=== PATIENT | female | born 2000 | race Caucasian/White ===

== ENCOUNTER 2022-10-24 12:12 | Outpatient (OUT) | payer OTHER, SELFPAY ==
[2022-10-24 12:45] LABS: Basophils Percent Auto 0.6 % (0.2-2.0); Eosinophils Absolute Auto 0.1 10^3/uL (0.0-0.7); Eosinophils Percent Auto 1.8 % (0.9-7.0); Hematocrit 42.6 % (36.0-48.0); Hemoglobin 14.3 g/dL (12.0-16.0); Immature Granulocytes Abs Auto 0.01 10^3/uL (0.00-0.03); Immature Granulocytes Pct Auto 0.2 % (0.0-0.5); Lymphocytes Absolute Auto 1.7 10^3/uL (1.2-3.8); Lymphocytes Percent Auto 34.1 % (20.5-60.0); Mean Corpuscular HGB Conc 33.6 g/dL (29.9-35.2); Mean Corpuscular Hemoglobin 29.3 pg (26.7-34.0); Mean Corpuscular Volume 87.3 fL (81.0-99.0); Mean Platelet Volume 9.1 fL (9.5-13.5); Monocytes Absolute Auto 0.3 10^3/uL (0.3-0.8); Monocytes Percent Auto 6.5 % (1.7-12.0); Neutrophils Absolute Auto 2.9 10^3/uL (1.4-6.5); Neutrophils Percent Auto 56.8 % (43.0-75.0); Platelet Count 201 10^3/uL (150-450); Red Blood Count 4.88 10^6/uL (4.20-5.40); White Blood Count 5.1 10^3/uL (4.0-11.0)
[2022-10-24 13:11] LABS: Anion Gap 11.5; BUN Creatinine Ratio 13.7; Calcium 8.7 mg/dL (8.5-10.1); Carbon Dioxide 26.7 mmol/L (21.0-32.0); Chloride 104 mmol/L (98-107); Estimated GFR (African America >60 (>=60); Estimated GFR (Non-African Ame >60 (>=60); Glucose 77 mg/dL (74-106); Potassium 4.2 mmol/L (3.5-5.1); Sodium 138 mmol/L (136-145); Thyroid Stimulating Hormone 2.228 uIU/mL (0.358-3.740)
[2022-10-24 13:52] LABS: Free T4 1.22 ng/dL (0.76-1.46)
== END 2022-10-24 12:13 | disposition home or self-care (01) ==
PROVIDERS: PCP Family Medicine; Visit Provider Family Medicine
DX: Z00.00 Encounter for general adult medical examination without abnormal findings (principal); E03.9 Hypothyroidism, unspecified
CPT/HCPCS: 36415; 80048; 84439; 84443; 85025

== ENCOUNTER 2023-12-31 08:49 | Outpatient (OUT) | payer OTHER, SELFPAY ==
--- NOTE | 2023-12-31 08:58 | US_ITS ---
The [address] [address] Patient Name: DOC LANDRUM MRN: [id number] date: 2000 Sex: F Assigned Patient Location: US Current Patient Location: Accession/Order Number: [id number] Exam Date: 12/31/2023 09:00 Report Date: 01/01/2024 10:55 At the request of: MOE JOHNSON Procedure: US thyroid EXAMINATION: US thyroid HISTORY: Goiter COMPARISON: 08/05/2019 TECHNIQUE: Sonographic images of the thyroid gland were obtained. FINDINGS: The right thyroid lobe is normal in size and contour with heterogeneous echotexture. No focal discrete nodule. The lobe measures 5.4 x 1.6 x 1.6 cm The thyroid isthmus measures 4 mm. Heterogeneous. No focal nodule The left thyroid lobe is normal in size and contour with heterogeneous echotexture. No focal discrete nodule. The lobe measures 5.0 x 1.3 x 1.5 cm US/US thyroid IMPRESSION: Heterogeneous thyroid gland with no focal nodules TI-RADS: TI-RADS 1: No focal lesion. Electronically authenticated by: KALPANA CHAO Date: 01/01/2024 10:55
[2024-01-01 10:10] LABS: Vitamin B12 327 pg/mL (232-1245)
== END 2023-12-31 08:50 | disposition home or self-care (01) ==
LOC: US 08:50
PROVIDERS: PCP Family Medicine; Visit Provider Family Medicine
DX: E03.9 Hypothyroidism, unspecified (principal); R79.89 Other specified abnormal findings of blood chemistry; E04.9 Nontoxic goiter, unspecified; R53.83 Other fatigue
CPT/HCPCS: 36415; 76536; 82306; 82607; 82746; 84439; 84443

== ENCOUNTER 2025-01-30 09:36 | Outpatient (OUT) | payer OTHER, SELFPAY ==
--- OUTSIDE RECORDS SUMMARY | 2025-01-30 04:35 | XMS_ITS | Continuity of Care Document ---
Author Organization [facility] Address [address] [place] [address] Phone Care Team Providers Care Operating Room Technician Name Role Phone Jania Rivera MD Primary Care Provider Jania Rivera MD Attending Provider Care Teams Patient Care Team Team Status: Active Member Role/Relationship Status Dates Jania Rivera MD Primary Care Provider Active Patient Care Team Team Status: Inactive Member Role/Relationship Status Dates Jania Rivera MD Primary Care Provider Active Start: January 30, 2025 End: January 30, 2025Jania Rivera MDAttending ProviderActiveStart: January 30, 2025 End: January 30, 2025 Chief Complaint and Reason for Visit Chief Complaint Admit Date Wellness January 30, 2025 8 :43am Reason for Visit Admit Date Hypothyroidism, unspecified January 8:43am Wellness examination January 30, 2025 8:43am Allergies, Adverse Reactions, Alerts Allergen Type Severity Reaction Last Updated Verified Status aspirin Allergy Unknown Hives January 30, 2025 9:00am Yes Active Social History Smoking Status Unknown if ever smoked Observation Status Observation Response Date of Response Legal Sex Female (finding) Sex Assigned At BirthFemaleApril 2000Pregnancy StatusNDecember 2024 Family History Relationship Condition Age at Onset Recorded Date/T jasmin mother Disorder of thyroid Unknown Problems Active Problems Problem Diagnosis/Recorded Date Onset Date Stat us Low vitamin B12 level December 25, 2023 10:56am Unkno wn Active Low vitamin D level December 25, 2023 10:56am Unknown Active Enlarged thyroid December 25, 2023 10:58am Unknown Active Wellness examination January 30, 2025 9:17am Unknown Active Hypothyroidism, unspecified December 23, 2023 9:24am Unknown Active Medications Medication Status Dose Units Route Directions Qty Days Refills S tart Date Stop Date End Date Reason(s) Instructions Adherence Levothyroxine 25 mcg tablet Discontinued 0 .ROUTE.IRGQXQQ684Hmuir 2023 1:40pmOctober 2023 10:02amTAKE 1 TABLET BY MOUTH EVERY DAYLevothyroxine 25 mcg tabletDiscontinued0.ROUTE.ANGOZBA97783 December 16, 2023 10:02amOctober 2023 7:27amTAKE 1 TABLET BY MOUTH EVERY DAYLevothyroxine 25 mcg tabletDiscontinued0.ROUTE.EHNOVWN115Wlhumpn 2023 7:27amApril 2024 7:32amTAKE 1 TABLET BY MOUTH EVERY DAYLevothyroxine 25 mcg tabletDiscontinued0.ROUTE.BZUJWEL903Vconk 2024 7:32amOctober 2024 2:00pmTAKE 1 TABLET BY MOUTH EVERY DAYLevothyroxine 25 mcg tabletActive0 .ROUTE.BHJEXQX045Rgpjdtd 2024 2:00pmTAKE 1 TABLET BY MOUTH EVERY DAY Complies with drug therapyNorethindrone-E.Estradiol-Iron (03/21 (28)) 1 mg-20 mcg (21)/75 mg (7) tabletDiscontinuedTABPODailySheridan Community Hospital 2023 11:00pm January 30, 2025 9:07amMedication Name: 03/21; Note: Source Status: Taking; Provider: Miguel Dykes ( )Albuterol Sulfate 90 mcg/actuation HFA aerosol inhalerDiscontinuedINHALATIONSheridan Community Hospital 2023 11:00pmDecember 2024 9:00amFreeTextSig: Albuterol Sulfate HFA 108 (90 Base)MCG/ACT, 2 (two) Puff Puff every four hours, as needed # 1, 03/05/2021, Ref. x1. Active Inhalation every four hours, as needed; Note: Source Status: Taking; Refills: 1; Provider: Miguel Dykes ( )Levothyroxine 25 mcg oyjxlzFcwbkwiwefxn82UEGXBXzemqUfbro 2023 11:00pmMarch 2023 1:40pm Immunizations Immunization Event Date Not Given Reason Dose Number Headend Technician Lot Number Reason(s) Given Vaccine Information Statement (VIS) Detail Administration Location COVID-19 mRNA, Comirnaty (Pfizer) December 12, 2020 COVID-19 mRNA, Comirnaty (Pfizer)January 03, 2021influenza, unspecified formulationJanuary 2020Meningococcal NZO9LAbzj 2017 Vital Signs Vital Reading Result Reference Range Collection Date/Time Height 60 [in_i] January 30, 2025 8:03nfFiyyuc07.68 kgDecember 2024 8:54amHeart Rate98 /ugk45-238Bescxekc 2024 8:54amBP Xbidyvjd068 mm[Hg]100-140Decemb2024 8:54amBP Hyuegkiyl31 mm[Hg]60-100December 2024 8:54amBMI (Body Mass Index)26.5 kg/l8Pqwduuxa2024 8:54am Advance Directives Advance Directive Response Recorded Date/ Time Advance Directives No December 25, 2023 10:25am Insurance Providers Guarantor Kenneth Myers Tete Address [address] [address]Pggbwvw Info.Home Phone: Payer Group Member ID Coverage Type Subscriber Relationship to Subscriber Effective Date Expiration Date MMO [id number] C Tete Id: [id number] [address] [address] Home Phone: [facility]ly [facility] Insurance Company Id: [id number] Tete Id: [id number] [address] [address] Home Phone: Email: [email or web address] Encounters Encounter Location(s) Arrival/Admit Date Discharge/Departure Date Discharge/Departure Disposition Provider(s) Departed Physician/ Provider Office Visit -[facility] January 30, 2025 8:43am January 30, 2025 9:23am Discharged to home care or self care (routine discharge) Jania Rivera MD Recent Diagnosis Onset Date Admit Date Hypothyroidism, unspecified Unknown Dece mber 2024 8:43am Wellness examination Unknown January 8:43am Assessments Diagnosis Onset Date Resolution Status Admit Date Hypothyroidism, unspecified acuteDece2024 8:43amWellness examinationacuteDece2024 8:43am Plan of Treatment Future Tests Future scheduled test information is unavailable Pending Tests Pending diagnostic test information is unavailable Future Visits Future appointment information is unavailable Future Procedures Procedure Name Ordered Date Scheduled Date Free T4 (Free Thyroxine) January 30, 2025 9:12 am Thyroid Antibodies TPO+Tg AbDece2024 9:13amThyroid Stim Hormone w/Rflx January 30, 2025 9:12am Future Medications Future medication information is unavailable Patient Instructions Patient instructions are unavailable
--- OUTSIDE RECORDS SUMMARY | 2025-01-30 09:41 | XMS_ITS | Clinical Summary ---
Author Organization [facility] Address [address] [place] [address] [place] [address] Care Team Providers Care Web Page Developer Name Role Phone Jania Rivera MD Primary Care Provider [phone] Allergies Active AllergyReactionsCriticalityNoted HiveGvsbasmnRqswwcyRnepcArll01/21/2022 Medications MedicationSigDispense QuantityRefillsLast FilledStart DateEnd DateStatus levothyroxine 25 MCG tablet Take 1 tablet by mouth daily.Active Aurovela FE 03/21 1-20 MG-MCG tablet Indications: control counselingTAKE 1 TABLET BY MOUTH EVERY DAY 84 tablet 5Active Active Problems ProblemNoted DateDiagnosed OregRnyfrmvdyasqqh51/08/2024 Family History Medical HistoryRelationNameCommentsHypertensionFatherMichael DendingerRecent diagnosis (2020)Prostate CancerFatherMichael DendingerDiscovered in 2022, very low % of cancer detected. No treatment provided given the low percentage. DiabetesMaternal GrandfatherJiariadna MillerDiagnosed as Type II later in life (around age 80)Thyroid DiseaseMotherhypothyroidismHypertensionPaternal Grandfather David IniguezingerHypertensionPaternal GrandmotherYoshiparkerbandar Pato known problems SisterBreast CancerNeg HxColorectal CancerNeg HxOvarian CancerNeg HxUterine CancerNeg HxRelationNameStatusCommentsFatherMichael DendingerAliveMaternal GrandfatherJim MillerMotherAlivePaternal GrandfatherMichael DendingerPaternal GrandmotherJackie BowerSisterAlive Social History Tobacco UseTypesPacks/DayYears UsedDateSmoking Tobacco: NeverSmokeless Tobacco: NeverAlcohol UseStandard Drinks/WeekCommentsNot Currently0 (1 standard drink = 0.6 oz pure alcohol)minimal, maybe 1 drink/weekCommentsNoSex and Gender InformationValueDate RecordedSex Assigned at BirthNot on fileLegal SexFemale 10/03/2020 3:02 PM EDTGender CtzpgpfwYxcjbb71/20/2022 9:23 PM ESTSexual GftclnvcoagHsogogtq05/20/2022 9:23 PM EST Last Filed Vital Signs Vital SignReadingTime TakenCommentsBlood Wedfrzen502/70004/09/2023 8:20 AM EST Ldcmr650504/22/2021 8:58 AM ESTTemperature--Respiratory Rate--Oxygen Hcuxkwttuz33% 04/22/2021 8:58 AM ESTInhaled Oxygen Concentration--Cqhppq12.3 kg (133 lb) 04/09/2023 8:20 AM EQKNistix296.4 cm (5')04/09/2023 8:20 AM ESTBody Mass Index 25.9704/09/2023 8:20 AM EST Plan of Treatment DateTypeDepartmentCare Team (Latest Contact Info)Dhmxrbkatgb27/16/2026 10:30 AM ESTOffice Visit [facility] [address] [address] Ce King, CAGE OPERATOR-[address] [address] Health MaintenanceDue DateLast DoneCommentsGONORRHEA OHFUIT47 2000HEPATITIS C VIRUS EQNOVKMGP63/23/2041ALQ80 2000HIV SCREENING BFGSNVCHNV78/23/2016 CHLAMYDIA EKMSRQ3706/22/20164620OWKAISB37/08/202307/09/2012, 09/09/2005COVID-19 VACCINE ( season)5103/05/2020, 12/12/2020INFLUENZA VACCINE (#1)501/AP SMEAR6004/08/2022HEP B VACCINECompleted 03/26/2001, 2000, 2000TDAP (ADULT)Lxrlgaovd52/08/2013, 09/09/2005HPV VACCINE KWOSFstajfepy50/04/2014, 11/26/2012, 09/06/2012HPV VACCINECompleted 04/05/2013, 11/26/2012, 09/06/2012CERVICAL CANCER SCREENING DISCUSSION Eveytsqzsyng92/07/2023NEUMOCOCCAL VACCINE SERIESAged OutNo longer eligible based on patient's age to complete this topic Procedures Procedure NamePriorityDate/TimeAssociated DiagnosisCommentsCYTOLOGY-LICENSED EMBALMER, LIQUID VVBTONwumwwp36/07/2023 12:36 PM EST Well woman exam with routine gynecological exam Screening for cervical cancer from Last 3 Months or Most Recently Relevant to Health Maintenance Results * CYTOLOGY-LICENSED EMBALMER, LIQUID BASED (04/08/2022 12:36 PM EST)ComponentValueRef Range Test MethodAnalysis TimePerformed AtPathologist SignatureCase Report Gynecologic Cytology Report ? Case: [id number] ? Authorizing Provider: ??Ce King, ?Collected: ? 04/08/2022 12:36 PM ? CAGE OPERATOR-INTERNET RESEARCHER ? Ordering Location: ? Obstetrics and Gynecology ??Received: ?04/08/2022 12:36 PM? [facility] [place] ? First Screen: ?Meggan Cordero ? Specimen: ?Cervical/Endocervical, ThinPrep, Cervical/Endocervical ? 04/22/2022 12:00 PM [facility]1/04/22/2022 12:00 PM [facility] LABORATORYSpecimen AdequacySatisfactory For Evaluation; Endocervical/Transformation Zone Component Present.04/22/2022 12:00 PM [facility] ---Cytologic Interpretation---?? Negative for Intraepithelial Lesion or Malignancy ?? HPV Testing Was Not Performed Due To The Results Of This Pap Test This Pap Test was imaged with the assistance of the [employer] ThinPrep Imaging System and screened bya Piston Maker. 04/22/2022 12:00 PM [facility] at 1200 ESTPAP METHODThinPrep 04/22/2022 12:00 PM [facility]Images 04/22/2022 12:00 PM [facility]ATORYHPV Reflex? HPV HR with genotyping if ASCUS (25-29)04/22/2022 12:00 PM [facility] LABORATORYFor Immediate Release to Patient's MyChart?YesYes 04/22/2022 12:00 PM ESTOSU [facility]YSpecimen (Source)Anatomical Location / LateralityCollection Method / VolumeCollection TimeReceived TimeFluid, Unspecified (Cervical/Endocervical)Collection / Unknown 04/08/2022 12:36 PM EST04/08/2022 12:36 PM EST Narrative Authorizing ProviderResult TypeResult StatusDanigoldy King CAGE OPERATOR-CNPCYTOLOGY Final ResultPerforming OrganizationAddressCity/State/ZIP CodePhone Number U [facility] [address] [facility] [place] [address] from Last 3 Months or Most Recently Relevant to Health Maintenance Insurance Care Teams Team MemberRelationshipSpecialtyStart DateEnd Date Jania Rivera MD PCP - GeneralFamily Medicine04/22/21
--- OUTSIDE RECORDS SUMMARY | 2025-01-30 09:52 | XMS_ITS | CCD ---
Author Organization [facility] Care Team Providers Care Lead Pressman Name Role Phone Alex BRITO, Jania Primary Care Provider DR JANIA JOHNSON Primary Care Unavailable ALEX, DR JANIA Arndt Admitting Unavailable ALEX, DR JANIA Arndt Attending Unavailable ALEX, DR JANIA Arndt Consulting Unavailable ALEX, DR JANIA Arndt Primary Care Unavailable ALEX, DR JANIA Arndt Admitting Unavailable ALEX, DR JANIA Arndt Attending Unavailable ALEX, DR JANIA Arndt Consulting Unavailable Jania Johnson MD Primary Care Provider VIVIAN DOUGLAS Attending Unavailable VIVIAN DOUGLAS Referring Unavailable JANIA JOHNSON Primary Care Unavailable SELF, SELF Referring Unavailable VIVIAN DOUGLAS Attending Unavailable JANIA JOHNSON Primary Care Unavailable JANIA JOHNSON Primary Care Unavailable CE MEAD Attending Unavailable SELF, SELF Referring Unavailable Jania Johnson Unavailable Jania Johnson MD Primary Care Provider Allergies Allergy ClassificationReported Allergen(s)Allergy TypeDate of OnsetReaction(s) Facility (3 sources)Aluminum aspirinDrug Pyeftdw86-90-0820RnggvRHVCleveland Clinic [facility] (2 sources)AspirinDrug AllergyCameron Regional Medical Center Proenza Schouer Other Medications Current Medications MedicationDrug Class(es)DatesSig (Normalized)Sig (Original)[id number] 200 actuat albuterol 0.09 mg/actuat metered dose inhaler (3 sources)beta2-Adrenergic AgonistStart: 27-34-3109wsan 2 puff(s) by inhalation every four hours as neededAlbuterol Sulfate Active INHALATION December 23, 2023 12:00am FreeTextSig: Albuterol Sulfate HFA 108 (90 Base)MCG/ACT, 2 (two) Puff Puff every four hours, as needed # 1, 03/05/2021, Ref. x1. Active Inhalation every four hours, as needed; Note: Source Status: Taking; Refills: 1; Provider: Alex Dykes ( )Start: 31-58-2911pyqf 2 puff(s) by inhalation every four hours as neededAlbuterol Sulfate HFA 108 (90 Base) MCG/ACT Albuterol Sulfate HFA 108 (90 Base)MCG/ACT, 2 (two) Puff Puff every four hours, as needed # 1, 03/05/2021, Ref. x1. Active Inhalation every four hours, as needed for 0 Mar, ActiveNorethindrone-E.Estradiol-Iron (4 sources)EstrogenStart: 77-92-9703Kmgfldqksgcgz-E.Estradiol-Iron (03/21 (28)) 1 mg-20 mcg (21)/75 mg (7) tablet Active TAB PODaily December 23, 2023 12:00am Medication Name: 03/21; Note: Source Status: Taking; Provid er: Alex Dykes ( )Start: 44-01-5528ghws 1 tablet by mouth once dailynorethindrone-ethinyl estradiol-FE 1-20 MG-MCG tablet Indications: control counseling Take 1 tablet by mouth daily. 84 tablet 4 04/09/2023 Active Start: 04-08-2022 End: 35-66-8563ngvh 1 tablet by mouth once dailynorethindrone-ethinyl estradiol- FE 1-20 MG-MCG tablet Indications: control counseling Take 1 tablet by mouth daily. 84 tablet 4 04/08/2022 04/09/2023 Discontinued (Reorder)Start: 32-92-7533jmuu 1 tablet by mouth once dailynorethindrone-ethinyl estradiol-FE 1- 20 MG-MCG tablet Indications: control counseling Take 1 tablet by mouth daily. 84 tablet 4 04/08/2022 ActiveJunel FE 20 (2 sources)03/21 Active Completed/Discontinued Medications MedicationDrug Class(es)DatesSig (Normalized)Sig (Original)Ethinyl Estradiol / norgestimate (2 sources)Progestin, Estrogen End: 25-39-6204ziuq 1 tablet by mouth once dailynorgestimate-ethinyl estradiol 0.18/0.215/0.25 MG-25 MCG tablet Take 1 tablet by mouth daily. Note for RPh: Generic for Ortho Tri-Cyclen Lo 0 04/08/2022 Discontinued (Therapy completed) take 1 tablet by mouth once dailynorgestimate-ethinyl estradiol (Tri-Lo-Halle) 0.18/0.215/0.25 MG-25 MCG tablet Take 1 tablet by mouth daily. Note for RPh: Generic for Ortho Tri-Cyclen Lo 0 Tdmmua745 actuat fluticasone propionate 0.044 mg/actuat metered dose inhaler (2 sources)CorticosteroidStart: 04-22-2021 End: 18-41-2973gezjkspempe (Flovent HFA) 44 MCG/ACT Aerosol inhaler Indications: History of 2019 novel coronavirusdisease (COVID-19) Inhale 2 puffs 2 times daily. Wash mouth after use 10.6 g 3 04/22/2021 04/08/2022 Discontinued levothyroxine sodium 0.025 mg oral tablet (9 sources)l-ThyroxineStart: 05-13-2023 End: 91-82-9174tldz 1 tablet by mouth once dailyLevothyroxine Discontinued 0 .ROUTE .COMPLEX 30 December 16, 2023 11:02am December 17, 2023 8:27am TAKE 1 TABLET BY MOUTH EVERY DAYStart: 05-13-2023 End: 60-92-5505crzv 25 ug by mouth once dailyLevothyroxine Discontinued 25 MCG PO Daily May 13, 2023 12:00am May 13, 2023 2:40pmStart: 45-61-6054qeda 1 tablet by mouth once dailyLevothyroxine Sodium 25MCG Levothyroxine Sodium 25MCG, 1 (one) Tablet daily # 90, 10/10/2021, Ref. x3. Active Oral daily for 90 days *Pick strength-form from [employer] for eRX* Sep, ActiveStart: 10-10-2021 take 1 tablet by mouth once dailyLevothyroxine Sodium 25MCG Levothyroxine Sodium 25MCG, 1 (one) Tablet daily # 90, 10/10/2021, Ref. x3. Active Oral daily for 0 *Pick strength-form from [employer] for eRX* Sep, Activetake 1 tablet by mouth once dailylevothyroxine 25 MCG tablet Take 1 tablet by mouth daily. 0 Active Problems Active Problems Problem ClassificationProblemDateDocumented DateEpisodic/ChronicAnxiety disorders (2 sources)Anxiety disorder; Translations: [Other specified anxiety disorders] ChronicContraceptive and procreative management (6 sources)Patient encounter status; Translations: [Encounter for other general counseling and advice on contraception]Onset: 72-19-7957NqmxcajoWtnmoqsohgkz diseases of female pelvic organs (2 sources)Acute vaginitis; Translations: [Acute vaginitis]EpisodicMenstrual disorders (2 sources)Dysmenorrhea; Translations: [Dysmenorrhea, unspecified]Onset: 24-11-5160WgiojjnBtevl female genital disorders (1 source)Burning sensation of vagina; Translations: [Unspecified condition associated with female genital organs and menstrual cycle]10-67-2061Nsuyxfha Other infections; including parasitic (1 source)Personal history of other infectious and parasitic diseases; Translations: [History of 2019 novel coronavirus disease (COVID-19)]Episodic Other screening for suspected conditions (not mental disorders or infectious disease) (7 sources)Cancer cervix screening status; Translations: [Encounter for screening for malignant neoplasm of cervix]Onset: 36-17-7176FjzpezqpYbmlt upper respiratory infections (2 sources)Chronic sinusitis; Translations: [Chronic sinusitis, unspecified] ChronicResidual codes; unclassified (2 sources)Body mass index 20-24 - normal; Translations: [Body mass index (BMI) 23.0-23.9, adult]EpisodicSkin and subcutaneous tissue infections (2 sources)Localized infection of skin AND/OR subcutaneous tissue; Translations: [Local infection of the skin and subcutaneous tissue, unspecified]Episodic Thyroid disorders (18 sources)Hypothyroidism, unspecified; Translations: [Nontoxic goiter, unspecified]Onset: 87-92-8360Szluzzv Past or Other Problems Problem ClassificationProblemDateDocumented DateEpisodic/ChronicAbdominal pain (2 sources)Right upper quadrant pain; Translations: [Right upper quadrant pain] Onset: 04-36-4468HdaggkpeRixrmbwpgclee symptoms and ill-defined conditions (2 sources)Dysuria; Translations: [Dysuria]Onset: 95-82-2306Xremaowv Noninfectious gastroenteritis (2 sources)Non-infective enteritis and colitis; Translations: [Noninfective gastroenteritis and colitis, unspecified]Onset: 23-44-2222KzrijssdWcmzf lower respiratory disease (2 sources)Dyspnea, unspecified; Translations: [Dyspnea, unspecified]Onset: 40-63-4778HwoasfoqCscek skin disorders (2 sources)Localized swelling, mass and lump, unspecified; Translations: [Localized mass]Onset: 88-80-3517HjmrlgsjAkuuo skin disorders (2 sources)Sebaceous cyst; Translations: [Sebaceous cyst]Onset: 05-03-2018 EpisodicOther upper respiratory infections (2 sources)Acute maxillary sinusitis; Translations: [Acute maxillary sinusitis, unspecified]Onset: 15-87-9691XvwfntsiJwninky (2 sources)Syncope and collapse; Translations: [Syncope and collapse]Onset: 05-86-0810CehbdhroSaaom infection (2 sources)Viral disease; Translations: [Viral infection, unspecified]Onset: 92-67-1139Sokzvbrz Results Test NameValueInterpretationReference RangeFacilityCYTOLOGY-BUSINESS CENTER REPRESENTATIVE, LIQUID BASEDon 04-08-2022---Cytologic Interpretation---[facility] HospitalComment on above:Result Comment: ? Negative for Intraepithelial Lesion or Malignancy ? HPV Testing Was Not Performed Due To The Results Of This Pap Test This Pap Test was imaged with the assistance of the [employer] ThinPrep Imaging System and screened bya Chief Security Officer. Performed By: #### THINP #### [facility] (DEFAULT) [address] [place], [place] [address]Case ReportNormSt. Anthony's Hospital Comment on above:Result Comment: Gynecologic Cytology Report Case: [id number] Authorizing Provider: Ce Mead, Collected: 04/08/2022 12:36 PM FILTER PRESS SUPERVISOR-HOT TAMALE MAN Ordering Location: Obstetrics and Gynecology Received: 04/08/2022 12:36 PM [facility] [place] First Screen: Meggan Cordero Specimen: Cervical/Endocervical, ThinPrep, Cervical/EndocervicalPerformed By: #### THINP #### [facility] (DEFAULT) [address] [place] [address] 16913XRV Reflex?HPV HR with genotyping if ASCUS (25-29)[facility] HospitalComment on above:Result Comment: For Immediate Release to Patient's [facility] Fairviewhart? YesPerformed By: #### THINP #### [facility] (DEFAULT) [address] [place] [address] 51809SZG0/27/23[facility] Comment on above:Performed By: #### THINP #### [facility] (DEFAULT) [address] [place] [address]88[address]DRS METHODThinPrepSheltering Arms HospitalComment on above:Performed By: #### THINP #### [facility] (DEFAULT) [address] [place] [address] 31822VQEN T4on 02-05-5608Tpli T4 [Mass/Vol]1.15 ng/dLNormal 0.76-1.46The [facility] HospitalComment on above:Performed By: #### FT4 #### [facility] [address] [place] [address] Dr. Magnolia Da Silva 23-23-8141DPW2.434 uIU/mLNormal0.358-3.740The [facility] HospitalComment on above:Performed By: #### TSH #### [facility] [address] [place] [address] Dr. Magnolia See T4on 87-18-4682Iksa T4 [Mass/Vol]1.05 ng/dLNormal0.78-2.19 The [facility] HospitalComment on above:Performed By: #### FT4 #### [facility] [address] [place] [address] Dr. Magnolia Da Silva 13-11-8296QIH5.709 uIU/mLNormal0.470-4.680A[facility] Healthcare System GlenbeighComment on above:Performed By: #### TSH #### [facility] [address] [address] [address] Magnolia Rowe [facility] HospitalComment on above: Result Comment: <0.34 UIU/ml HYPERTHYROID 0.34-5.60 UIU/ml EUTHYROID >5.60 UIU/ml HYPOTHYROIDPerformed By: #### TSH #### [facility] [address] [address] [address] Magnolia [place] Vital Signs Date TimeVital SignValuePerforming DsmwmqvguTvfqzcjf94-67-8111 11:33-0400Body anqcew5172.8 cmUniversity Hospitals [facility]10-25-2024 11:33-0400Body mass index (BMI) [Ratio]0.1 kg/z8KbdzvzohaUniversity Hospitals Samaritan Medical Center10-25-2024 11:33-0400Body oepzbo17.05 kgUniversity Hospitals Samaritan [facility] Center10-25-2024 11:33-0400Diastolic blood mevmskcx27 mm[Hg][facility] 12-25-2023 11:33-0400Heart rate85 /[facility] 12-25-2023 11:33-0400Systolic blood ikoistsi288 mm[Hg][facility]02-08-2024 08:20-0500Body iaxmwv727.4 cmDarafael Mead APRN-HOT TAMALE MAN Work Phone: [facility]02-08-2024 08:20-0500Body mass index (BMI) [Ratio]25.97 kg/m0Qujjzxdhrafael Mead FILTER PRESS SUPERVISOR-HOT TAMALE MAN Work Phone: [phone]02-08-2024 08:20-0500Body uyvuvy01.33 kgDarafael Mead FILTER PRESS SUPERVISOR-HOT TAMALE MAN Work Phone: [facility]02-08-2024 08:20-0500 Diastolic blood pdmpuocv38 mm[Hg]Ce Mead FILTER PRESS SUPERVISOR-HOT TAMALE MAN Work Phone: [facility]02-08-2024 08:20-0500Systolic blood abyrwszi910 mm[Hg]Ce Mead FILTER PRESS SUPERVISOR-HOT TAMALE MAN Work Phone: [facility]08-25-2023 11:30-0400Body fiuiae932.94 cmNeryleonel Alex Other [employer] [facility] Other 08-25-2023 11:30-0400Body mass index (BMI) [Ratio] 24.37 kg/h7Kwfvwe Alex Other [facility] Other 08-25-2023 11:30-0400Body ydurzm23.51 kgJania Alex Other [employer] Other 08-25-2023 11:30-0400Diastolic blood xwfhfeqq14 mm[Hg] Jania Alex Other [facility] Other 08-25-2023 11:30-0400Systolic blood zobrwjpj698 mm[Hg] Jania Johnson Other [facility] Other 02-07-2023 08:10-0500Body mass index (BMI) [Ratio] 24.55 kg/l6Aozgbfmbrafael Mead FILTER PRESS SUPERVISOR-HOT TAMALE MAN Work Phone: [facility]02-07-2023 08:10-0500Body fdtaqn65.02 kgDarafael Mead FILTER PRESS SUPERVISOR-H[employer] MAN Work Phone: [phone]02-07-2023 08:10-0500 Diastolic blood jbuponyq48 mm[Hg]Ce Mead FILTER PRESS SUPERVISOR-H[employer] MAN Work Phone: [facility]02-07-2023 08:10-0500Systolic blood dmetivjr691 mm[Hg]Ce Fernando FILTER PRESS SUPERVISOR-H[employer] MAN Work Phone: [facility] Encounters Encounter DateEncounter TypeCare ProviderFacilityStart: 12-25-2023 End: 55-94-4952wmocisdsjcLyaetgnor [facility] Work Phone: Start: 12-25-2023 End: 95-08-3306Jmxqtjr encounter procedureCentral [facility] Hospital Phys[facility] Work Phone: Start: 04-09-2023 End: 31-33-2216Tkobsvp encounter procedureDarafael Mead FILTER PRESS SUPERVISOR-HOT TAMALE MAN Work Phone: [facility] Work Phone: Start: 04-09-2023 End: 57-27-7315Ogstgvbl preventive med est patient 18-39 yrsDarafael Mead FILTER PRESS SUPERVISOR-HOT TAMALE MAN Work Phone: [facility] Comment on above:Well woman exam with routine gynecological exam (Primary Dx); control counseling; Vaginal burningStart: 10-28-2022 End: 21-28-9735szoncwzsmiNyqzpk Alex Other [employer] Other Start: 25-76-6428Kmcycrrbk encounterMarcileonel JohnsonHocking Valley Community Hospitaltart: 10-24-2022 End: 82-06-2880ikbtqfgyniUnowub Alex Other [employer] [facility] Other Start: 64-00-1297Sheydffsf for general adult medical examination without abnormal findingsMarcia [facility] ClinicStart: 28-16-2267Bkwnpwjc preventive med est patient 18-39 yrsMarcia AlexHocking Valley Community Hospitaltart: 07-16-3931nkhcswocbhQEPRMI ALEXFacility:[facility]tart: 27-77-6331Ggjsnodgt for gynecological examination (general) (routine) without abnormal findingsCE MEADFacility:[facility]tart: 04-08-2022 End: 60-64-5546Lkzdjah preventive medicine new pt age 18-39yrsDanielle Kathi Fernando MARSH-HOT TAMALE MAN Work Phone: [facility] [place] Comment on above:Well woman exam with routine gynecological exam (Primary Dx); Screening for cervical cancer; control counselingStart: 04-08-2022 End: 10-64-5251Ltmnrrk encounter procedureDanielle Kathi Mead APRN-HOT TAMALE MAN Work Phone: [facility] Care [place]tonStart: 32-59-5393Gaohz health examinationMarglenn Johnson Other [facility] Proenza Schouer Other Start: 10-11-2021 End: 85-02-0507dxxlwqbxhiPB JANIA JOHNSONFacility:O0Pemqg: 40-70-2909bdduicvauk SELF SELFFacility:[facility]THtart: 07-47-1349mhhvzbzqxoOKHHA A TAPYRIK Facility:[facility]tart: 05-27-2021 End: 69-15-1425Eokuhfksme hospital visit by Georges Douglas MD Work Phone: Pulmonary Diagnostics LabComment on above:Arrived Start: 12-13-2020 End: 26-40-3456pjgjzzxqrmTL JANIA JOHNSONFacility:H1 Procedures DateProcedureProcedure DetailPerforming ClinicianStart: 80-23-7581Ogkeauliene observation [Identifier] in Cervix by Cyto stainDarafael Mead APRN-HOT TAMALE MAN Work Phone: Start: 69-24-4411Zrmreq w/vc expiratory rain w/wo mxml vol vnGerald Douglas MD Work Phone: Plan of Treatment DateCare ActivityDetailAuthorStart: 74-01-3920Ldbpqdmde for malignant neoplasm of cervixPAP SMEAROSU [facility] Hospitaltart: 58-76-6613YZLXT-19 VACCINE ()COVID-19 VACCINE ()[facility] Start: 32-49-8930Lahhilrte vaccinationINFLUENZA VACCINE (#1)[facility]: 97-10-5010Iwlcznx vaccinationTETANUSSt. Vincent Hospitaltart: 83-31-6100Ncyidfray vaccinationINFLUENZA VACCINE (#1)[facility] Start: 07-22-2021 End: 52-67-0042Hwjxdrj encounter /23/2022 Office Visit Pulmonary Disease Vivian Douglas MD [address] [facility] [address] [place] [address] Lung Care Outpatient [facility]: 81-49-1906Ynndjlijc for malignant neoplasm of cervixCERVICAL CANCER SCREENING DISCUSSIONOSU [facility] Hospitaltart: 96-95-3249PVDTZ-19 VACCINE (3 - Booster for Pfizer series)COVID-19 VACCINE (3 - Booster for Pfizer series)[facility]: 46-58-8729CORAY-19 VACCINE (3 - Booster for Pfizer series)COVID-19 VACCINE (3 - Booster for Pfizer series)[facility]: 58-62-5012Aavdppcal vaccinationINFLUENZA VACCINE (#1)[facility] CenterStart: 03-21-8565Olfme diphtheria, tetanus and acellular pertussis (DTaP) vaccinationTDAP (ADULT)[facility]art: 21-41-6478Qeojdac vaccinationTETANUSCommunity Regional Medical Center CenterStart: 2016 Screening for Chlamydia trachomatisCHLAMYDIA SCREENOSUk Healthcare Start: 71-01-8649WGF screeningHIV SCREENING DISCUSSIONOSU St[facility] Start: 43-70-5319Eusnkusnhdl for human papillomavirusHPV VACCINE ADOL (1 - 2- dose series)[facility]: 39-34-9012SQMJWICVT SCREENGONORRHEA SCREENOSU [facility] CenterStart: 05-04-6501Hwymvyqmn C antibody, confirmatory testHEPATITIS C VIRUS SCREENINGOSU [facility] Hospitaltart: 23-61-4562Dkbsfgize C screeningHEPATITIS C VIRUS SCREENINGOSU [facility] Hospitaltart: 33-01-1094Zehqhrejo for Chlamydia trachomatisGONORRHEA SCREENOSU [facility] Hospitaltart: 26-40-7360Wcbdbsb stimulating hormone measurementODESSA MEMORIAL [facility]ALTHCARE CENTER OSUk HealthcareBACTERIAL VAGINOSIS(VAGINITIS PANEL)BACTERIAL VAGINOSIS(VAGINITIS PANEL) Microbiology Routine Vaginal burning 04/09/2023 9:16 AM [facility] HealthcareCANDIDA VAGINOSIS(VAGINITIS PANEL)GILBERTO VAGINOSIS(VAGINITIS PANEL) Microbiology Routine Vaginal burning 04/09/2023 9:16 AM [facility] HealthcareCytology Cervical or vaginal smear or scraping studyCYTOLOGY-BUSINESS CENTER REPRESENTATIVE, LIQUID BASED Cytology Routine Well woman exam with routine gynecological exam Screening for cervical cancer 04/08/2022 12:36 PM [facility] HealthcareUS Thyroid glandUniversity Hospitals Samaritan Medical CenterVAGINAL INFECTION PANELVAGINAL INFECTION PANEL Microbiology Routine Vaginal burning 04/09/2023 9:16 AM [facility] Immunizations Immunization DateImmunizationNotesCare TdpetpnfYygfhaom40-33-8483EZVVY-65 Vaccine Pfizer - Documentation Purposes OnlyJania Johnson Other [facility]10-13-2021COVID-19 Vaccine Pfizer - Documentation Purposes OnlyJania Johnson Other [facility]01-09-2021influenza virus vaccine, split virus (incl. purified surface antigen)Jania Johnson Other [place] Proenza Schouer Other [id number] virus vaccine, unspecified Travis Douglas MD Work Phone: [facility]06-21-2018 meningococcal oligosaccharide (groups A, C, Y and W-135) diphtheria toxoid conjugate vaccine (MCV4O)Jania Johnson Other [facility] Payers DatePayer CategoryPayerPolicy [id number] [id number] Health Insurance [facility] Insurance [id number] Social History DateTypeDetailFacilityStart: 99-06-2856Muwptck smoking status NHISNever smoked tobaccoOSU [facility] Hospitaltart: 27-07-4960Udipnuv use and exposure Smokeless tobacco non-userOSU [facility] Hospitaltart: 04-22-2021 End: 27-83-1818Surqhmv intakeCurrent drinker of alcohol (finding)[facility] Hospitaltart: 95-56-5045Jpmipgl SDOH Alcohol Commentminimal, maybe 1 drink/weekOSU [facility] Hospitaltart: 16-51-4830Lxc Assigned At BirthNot on fileOSUC Healthtart: 05-17-2021 End: 15-41-3138Jezoyfgn to SARS-CoV-2 (event)Not sureOS[facility] Start: 04-08-2022 End: 72-88-1277Achlelc intakeOSU [facility] Hospitaltart: 03-29-2022 End: 75-33-3126Hxhusosl to SARS-CoV-2 (event)Unable to assessOSU [facility] Hospitaltart: 26-86-1537Wxx Assigned At [facility] Proenza Schouer Other Start: 54-04-3604Qwyyghf intakeEx-drinker (finding)[facility]: 41-79-4549Rbltji identityIdentifies as female gender (finding)[facility]: 92-15-5317Nmblgf orientation Heterosexual (finding)[facility]: 88-75-1396Qsf Assigned At [facility] History of Present illness Narrative 04-09-2023 Note Date & FqotWvbwYvwikghx68-09-3946 History of Present illness Narrative* Ce Mead, FILTER PRESS SUPERVISOR-HOT TAMALE MAN - 04/09/2023 8:30 AM EST Subjective: Kenneth Epstein is a 22 y.o. female here for routine well woman exam. Current Complaints: -BTB in January with Loestrin, its more of a brown colored discharge happening 1 week before her period -Decreased libido and vaginal burning with intercourse since starting OCP Gynecologic History Patient's last menstrual period was 03/23/2023 (exact date). Menarche: 12 Periods every 28 days, lasting 5 days, light flow, minimal cramping, some IMB. Contraception: OCP (estrogen/progesterone) switched to Loestrin from LoLoestrin last year d/t BTB, still having BTB the last couple of months Sexually Active: yes- with pain Hx of STI: Last Pap: 04/24 NILM Hx of abnormal pap: no Mammogram: n/a Colonoscopy: n/a Gardasil: complete Urinary symptoms: no Bowel symptoms: no Vaginal discharge: possible odor Vasomotor symptoms: n/a Preconceptual: Not applicable Obstetric History OB History 0 Para 0 Term 0 0 AB 0 Living 0 SAB 0 IAB 0 Ectopic 0 Molar 0 Multiple 0 Live Births 0 reports being sexually active and has had partner(s) who are male. She reports using the following methods of control/protection: Condom and Pill. Past Medical History: Diagnosis Date COVID 01/2020 Hypothyroidism No past surgical history on file. Family History Problem Relation Age of Onset Thyroid Disease Mother hypothyroidism Hypertension Father Recent diagnosis (2020) Prostate Cancer Father Discovered in 2022, very low % of cancer detected. No treatment provided given the low percentage. No known problems Sister Hypertension Paternal Grandmother Hypertension Paternal Grandfather Diabetes Maternal Grandfather Diagnosed as Type II later in life (around age 80) Breast Cancer Neg Hx Colorectal Cancer Neg Hx Ovarian Cancer Neg Hx Uterine Cancer Neg Hx Patient's medications, allergies, past medical, surgical, social and family histories were reviewedand updated as appropriate. Review of Systems General: Denies recent weight changes, fatigue, malaise, fevers, chills, dizziness, muscle aches orweakness. Skin: Denies rashes, changes in moles, or changes in hair and nails. Head and Neck: Denies frequent headache, no history of head injury, no lymphadenopathy, or neck pain. Resp: Denies SOB, dyspnea on exertion, coughing or wheezing. Cardio: Denies chest pain, palpitations, edema, numbness or tingling. GI/: Denies nausea, vomiting, diarrhea, constipation, and urinary frequency, burning, urgency andincontinence. Pelvic: No pelvic pain or discomfort. Denies itching or genital lesions. +discharge, burning Breast: Denies breast discomfort, masses or nipple discharge. Psych: Denies depression, anxiety Objective: BP 110/70 Ht 5' (1.524 m) Wt 133 lb (60.3 kg) BMI 25.97 kg/m Smoking Status Never Body massindex is 25.97 kg/m . General: Alert, no distress Head: Normocephalic, without obvious abnormality Back: negative Respiratory: RRR, unlabored breathing Breasts normal appearance, no masses or tenderness Abdomen: Soft, non-tender, no masses, no organomegaly Pelvic: External genitalia normal, cervix normal in appearance, uterus normal size, shape, and consistency, no adnexal masses or tenderness, rectovaginal septum normal, positive findings: vaginal discharge: copious, white, and curd-like Extremities: Extremities normal, atraumatic, no cyanosis or edema Skin: Skin color, texture, turgor normal. No rashes, or lesions Neurologic: Grossly normal Lymph Nodes: Cervical, supraclavicular, and axillary nodes normal Assessment: Kenneth was seen today for Annual Exam (Break through periods still ) Impression: 1. Well woman exam with routine gynecological exam 2. control counseling 3. Vaginal burning Plan: 1. Well woman exam with routine gynecological exam - Performed clinical breast exam, bimanual exam, and pelvic exam today - Discussed self breast awareness - Reviewed diet, exercise and general health maintenance. - A Pap was not done today. We discussed current ACOG/ASCCP guidelines for pap smears. She was notified that although paps will not be annual, she should still have an annual exam. She is aware that paps will be done until age 65. 2. control counseling - Patient having light brown spotting about 1 week prior to period in Loestrin. We discussed increasing estrogen dose again, as we increased last year from LoLoestrin to Loestrin. Patient also notes concerns of decreased libido and dryness/burning with intercourse since starting OCP, discussed progesterone only options, including POP, implanon, IUD, depoprovera. Patient opts to stick with currentOCP- Loestrin for now. Will consider other options over the next year, may message me for script for POP at any point. - norethindrone-ethinyl estradiol-FE 1-20 MG-MCG tablet; Take 1 tablet by mouth daily. Dispense: 84tablet; Refill: 4 3. Vaginal burning -Collected vaginal swab for infection panel, will follow up in [facility]. - Discussed coconut oil as vaginal moisturizer - VAGINAL INFECTION PANEL Requested Prescriptions Signed Prescriptions Disp Refills norethindrone-ethinyl estradiol-FE 1-20 MG-MCG tablet 84 tablet 4 Sig: Take 1 tablet by mouth daily. Follow Up: - Patient was encouraged to follow-up or establish care with a PCP. - Return for Routine Exam in 1 year and PRN KEYUR Cheney * Colleen Sy - 04/09/2023 8:30 AM EST Kenneth Epstein was offered and declined a Medical Physics Technical Officer for this exam/procedure/test04/09/2023. [facility] 10-24-2022 Note Date & [id number] Evaluation note* Encounter Date Diagnosis Assessment Notes Treatment Notes Treatment Clinical Notes Sep, Well adult exam (ICD-10 - Z00.00 ) We have discussed the necessity of following up with PCP regularly as well as specialists, as needed. Discussed F/U with dentistry and optometry at least yearly. Discussed all preventative measures/ cancer screenings as applicable to this patient. Emphasized the importance of a reduced fat, low carb diet to promote heart health and controlled blood sugars. Reviewed social history and ensured patient is safe within the home today. Pt denies any abuse of alcohol, nicotine, caffeine or recreational drugs. I have ensured patient is of stable mental and physical health today. We have discussed appropriate F/U schedule as well as blood work and vaccinations that apply. All questions answered and p atient is sent home pleased, without concerns. Sep,Hypothyroidism, unspecified (ICD-10 - E03.9)Chronic problem, due for recheck [facility] Other Clinical Note 04-08-2022 Note Date & [id number] NoteSatisfactory For Evaluation; Endocervical/Transformation Zone Component Present.[facility]iff[facility] HospitalComment on above:Performed By: #### THINP #### [facility] (DEFAULT) [address] [place] [id number] History of Present illness Narrative 04-08-2022 Note Date & [id number] History of Present illness Narrative* Ce Mead, SALMA-MEENU - 04/08/2022 8:15 AM EST Subjective: Kenneth Epstein is a 21 y.o. female here for routine well woman exam. Current Complaints: breakthrough bleeding on loloestrin Gynecologic History Patient's last menstrual period was 03/28/2022. Menarche: 13 She has been on control for 3 years, started having breakthrough bleeding last spring after receiving a booster of the COVID19 vaccine. She was on Halle, switched in Fall 2021 to loloestrin, breakthrough bleeding then became much worse.Since then she has had spotting for 7 days during the middle of the month and then 4 days of normalbleeding during the placebo week. Contraception: OCP (estrogen/progesterone) Sexually Active: yes- with no associated pain Hx of STI: no Last Pap: n/a Hx of abnormal pap: n/a Mammogram: n/a Colonoscopy: n/a Gardasil: completed Urinary symptoms: no Bowel symptoms: no Vaginal discharge: no Vasomotor symptoms: n/a Preconceptual: Not applicable Obstetric History OB History 0 Para 0 Term 0 0 AB 0 Living 0 SAB 0 IAB 0 Ectopic 0 Molar 0 Multiple 0 Live Births 0 reports being sexually active and has had partner(s) who are male. She reports using the following methods of control/protection: Condom and Pill. Past Medical History: Diagnosis Date COVID 01/2020 Hypothyroidism No past surgical history on file. Family History Problem Relation Age of Onset Thyroid Disease Mother hypothyroidism Hypertension Father Recent diagnosis (2020) No known problems Sister Hypertension Paternal Grandmother Hypertension Paternal Grandfather Breast Cancer Neg Hx Colorectal Cancer Neg Hx Ovarian Cancer Neg Hx Uterine Cancer Neg Hx Patient's medications, allergies, past medical, surgical, social and family histories were reviewedand updated as appropriate. Review of Systems General: Denies recent weight changes, fatigue, malaise, fevers, chills, dizziness, muscle aches orweakness. Skin: Denies rashes, changes in moles, or changes in hair and nails. Head and Neck: Denies frequent headache, no history of head injury, no lymphadenopathy, or neck pain. Resp: Denies SOB, dyspnea on exertion, coughing or wheezing. Cardio: Denies chest pain, palpitations, edema, numbness or tingling. GI/: Denies nausea, vomiting, diarrhea, constipation, and urinary frequency, burning, urgency andincontinence. Pelvic: No pelvic pain or discomfort. Denies itching, burning, discharge or genital lesions. Breast: Denies breast discomfort, masses or nipple discharge. Psych: Denies depression, anxiety Objective: BP 104/70 (BP Location: Left arm, BP Position: Sitting) Wt 125 lb 11.2 oz (57 kg) BMI 24.55 kg/m Smoking Status Never Body mass index is 24.55 kg/m . General: Alert, no distress Head: Normocephalic, without obvious abnormality Back: negative Breasts normal appearance, no masses or tenderness Abdomen: Soft, non-tender, bowel sounds normal, no masses, no organomegaly Pelvic: External genitalia normal, Vagina normal without discharge, cervix normal in appearance, uterus normal size, shape, and consistency, no adnexal masses or tenderness, rectovaginal septum normal Extremities: Extremities normal, atraumatic, no cyanosis or edema Skin: Skin color, texture, turgor normal. No rashes, or lesions Neurologic: Grossly normal Lymph Nodes: Cervical, supraclavicular, and axillary nodes normal Assessment: Kenneth was seen today for Establish Care (1st BUSINESS CENTER REPRESENTATIVE appt), Annual Exam, and Vaginal Bleeding (AUB on OCP- Lo-estrin 1mg/10mcg FE) Impression: 1. Well woman exam with routine gynecological exam 2. Screening for cervical cancer 3. control counseling Plan: 1. Well woman exam with routine gynecological exam -Performed clinical breast exam, bimanual exam, and pelvic exam today - CYTOLOGY-BUSINESS CENTER REPRESENTATIVE, LIQUID BASED 2. Screening for cervical cancer - A Pap was done today. I will follow up as needed. We discussed current ACOG/ASCCP guidelines for pap smears. She is aware that reflex HPV testing will be performed based on results. She was notified that although paps will not be annual, she should still have an annual exam. She is aware that paps will be done until age 65. - CYTOLOGY-BUSINESS CENTER REPRESENTATIVE, LIQUID BASED 3. control counseling -- reviewed all options including LARCs like levonorgesterol IUD, copper IUD, nexplanon, depo provera, OCPs/patch/ring, POPs - after this discussion, patient opts for change in OCP - No contraindications for her chosen method; discussed r/b/a and all questions were answered. - Prescription for Junel -Discussed that we will change the estrogen in her control, she may not have enough estrogen which is causing her to have a lot of spotting. Trial Junel for 3 months and see how the bleeding changes. - all questions were answered. - norethindrone-ethinyl estradiol-FE 1-20 MG-MCG tablet; Take 1 tablet by mouth daily. Dispense: 84tablet; Refill: 4 Requested Prescriptions Pending Prescriptions Disp Refills norethindrone-ethinyl estradiol-FE 1-20 MG-MCG tablet 84 tablet 4 Sig: Take 1 tablet by mouth daily. - Reviewed diet, exercise and general health maintenance. - Reinforced Self Breast Awareness. Follow Up: - Patient was encouraged to follow-up or establish care with a PCP. - Return for Routine Exam in 1 year and PRN KEYUR Cheney [facility] Date & TypeNoteFacilityEvaluation note* Diagnosis History of 2019 novel coronavirus disease (COVID-19) [facility] Note Date & TypeNoteFacilityEvaluation note* Diagnosis Well woman exam with routine gynecological exam- Primary Routine gynecological examination Screening for cervical cancer Screening for malignant neoplasm of the cervix control counseling General counseling for initiation of other contraceptive measures documented [facility] this [facility] Evaluation note Note Date & TypeNoteFacilityEvaluation noteNo [facility]Place[facility] Proenza Schouer Other Evaluation note Note Date & TypeNoteFacilityEvaluation note* Diagnosis Well woman exam with routine gynecological exam- Primary Routine gynecological examination control counseling General counseling for initiation of other contraceptive measures Vaginal burning Other specified symptom associated with female genital organs [facility] Evaluation note Note Date & TypeNoteFacilityEvaluation note* Diagnosis Onset Date Resolution Status Enlarged thyroid acuteHypothyroidism, unspecifiedacuteLow vitamin B12 levelacuteLow vitamin D levelacute [facility] Work Phone: History general Narrative - Reported Note Date & TypeNoteFacilityHistory general Narrative - Reported* Type Description Date Medical History Problem Title : ches t wall assessment, physical exam, Problem Description : chest wall assessment, physical exam, Problem Comment : no CVA tenderness to percussion, Problem Status : Active,, Medical HistoryProblem Title : compliance with medical treatment, Problem Description : compliance with medical treatment, Problem Comment : Done, Problem Status : Active,,Medical HistoryProblem Title : Depression Screening, Problem Description : Depression Screening, Problem Comment :Negative, Problem Status : Active,,Medical HistoryProblem Title : no known problems, Problem Description : no known problems, Problem Comment : F, Problem Status : Active,,Medical History Problem Title : past medical history E&M, Problem Description : past medical history E&M, Problem Comment : hypothyroid, Problem Status : Active,,Medical HistoryProblem Title : past medical history reviewed, Problem Description : past medical history reviewed,Problem Comment : reviewed - no changes required, Problem Status : Active,,Medical HistoryProblem Title : PHQ2 Questionairre Score, Problem Description : PHQ2 Questionairre Score, Problem Comment : 0, Problem Status : Active,,Medical HistoryProblem Title : PHQ9 Question One score, Problem Description : PHQ9 Question One score, Problem Comment : 0, Problem Status : Active,,Medical HistoryProblem Title : PHQ9 Question Two score, Problem Description : PHQ9 Question Two score, Problem Comment : 0, Problem Status : Active,,Medical HistoryProblem Title : Problems Reconciled, Problem Status : Active,,Surgical HistoryProblem Title : past surgical history reviewed, Problem Description : past surgical history reviewed, Problem Comment : reviewed - no changes required, Problem Status : Active, [facility] Other Summary Purpose Family History Relationship Condition Age at Onset Recorded Date/T jasmin mother Disorder of thyroid Unknown Advance Directives Advance Directive Response Recorded Date/ Time Advance Directives No December 25, 2023 11:25am Chief Complaint and Reason for Visit Chief Complaint prescription refill Reason for Visit Enlarged thyroid Hypothyroidism, unspecified Low vitamin B12 level Low vitamin D level Additional Source Comments Reason for Visit (unrecogniz ed section and content) SpecialtyDiagnoses / ProceduresReferred By ContactReferred To Contact Diagnoses History of 2018 novel coronavirus disease (COVID-19) Procedures PFT STANDARD Vivian Douglas MD [address] [facility] [address] [place] [address] Referral IDStatusReasonStart DateExpiration DateVisits RequestedVisits [id number] Request/[id number] Bsgk8sf BUSINESS CENTER REPRESENTATIVE apptAnnual ExamVaginal BleedingAUB on OCP- Lo-estrin 1mg/10mcg FEReason CommentsAnnual ExamBreak through periods still Care Teams (unrecognized sec tion and content) Team MemberRelationshipSpecialtyStart DateEnd Date Jania Johnson MD [address] [place] [address] [place] [address] PCP - [facility]04/22/21Team MemberRelationshipSpecialtyStart DateEnd Date Jania Johnson MD [address] [facility] [place] [address] [place] [address] PCP - [facility]04/22/21Team MemberRelationshipSpecialtyStart DateEnd Date Jania Johnson MD [address] [facility] [place] [address] PCP - [facility]04/22/21 Team Status: Active Member Role Status Dates Jania Johnson MD Primary Care Provider Active Team Status: Inactive Member Role Status Dates Jania Johnson MD Primary Care Provide r, Attending Provider Active Start: December 25, 2023 End: December 25, 2023 INFORMATION SOURCE (unrecogn ized section and content) DATE CREATED AUTHOR 10/14/2021 [facility] DATE CREATED AUTHOR AUTHOR'S ORGANIZ ATION 04/23/2022 [facility] Goals (unrecognized section and content) Goals may be documented in a n alternate section FOR RECORDS PERTAINING TO PATIENTS WHO ARE OR HAVE BEEN ENROLLED IN A CHEMICAL DEPENDENCY/SUBSTANCEABUSE PROGRAM, SOME INFORMATION MAY BE OMITTED. This clinical summary was aggregated from multiple sources. Caution should be exercised in using it in the provision of clinical care. This summary normalizes information from multiple sources, and as a consequence, information in this document may materially change the coding, format and clinical context of patient data. In addition, data may be omitted in some cases. CLINICAL DECISIONS SHOULD BE BASED ON THE PRIMARY CLINICAL RECORDS. [employer] [facility]. provides no warranty or guarantee of the accuracy or completeness of information in this document.
[2025-01-30 10:44] LABS: Thyroid Stimulating Hormone 1.633 uIU/mL (0.358-3.740)
== END 2025-01-30 09:37 | disposition home or self-care (01) ==
LOC: LAB 09:38
PROVIDERS: PCP Family Medicine; Visit Provider Family Medicine
DX: Z00.00 Encounter for general adult medical examination without abnormal findings (principal); E06.3 Autoimmune thyroiditis
CPT/HCPCS: 36415; 84439; 84443; 86376; 86800